=== PATIENT | female | born 1975 | race Caucasian/White ===

== ENCOUNTER 2025-02-02 08:19 | Outpatient (RCR) | payer MEDICAID, SELFPAY ==
--- NOTE | 2025-01-18 12:34 | CTCCONSULT_ITS ---
[facility] [address] [place], [place] [address] Consultation Note Date: 01/18/2025 MR#: [id number] Name: LIZ GARZON : 1975 Dx: C49.22 Malignant neoplasm soft tissue left lower [id number] Referring physician. Owen Erazo MD Reason for consultation. High-grade pleomorphic sarcoma left thigh History of Present Illness: Patient is a 49-year-old lady following left hamstring injury had MRI of the thigh 08/12/2024 revealing complex cystic and solid mass with surrounding edema present in the posterior thigh musculature measuring 9.0 x 11.2 x 12.9 cm with fluid tracking posteriorly inferiorly to this mass. Core biopsy 09-28 revealed high-grade pleomorphic sarcoma. At CT abdomen pelvis 09/14/2024 revealing 2.3 cm sclerotic focus stable since 2018 most likely benign. There was no suspicious intrapelvic or intra-abdominal lymphadenopathy seen. Evaluated US and on 12/02/2024 MRI revealed heterogeneous mass measuring approximately 7.3 x 9.4 x 12.3 cm smaller than noted previously. CT chest abdomen pelvis 12/02/2024 unremarkable for any sign of mets. Patient under care of Dr. Marco Antonio Mistry at [facility] was initiated neoadjuvant chemo AIM beginning October 01, 2024 last dose 6 weeks ago in December, completing 4 cycles according the patient. Patient also received Keytruda, Pt also saw orthopedic surgeon who felt that with tumor is immediately abutting sciatic nerve and that preop radiation therapy would be desirable to shrink tumor away from the nerve. Patient now referred for radiation oncology consultation. Patient had PET scan January 05, 2024 which showed sclerotic L2 vertebral body but no other area of involvement. 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 As well as postop chest wall radiation; gastric bypass surgery 2003 taking Eliquis for DVTs Meds. [place] Gemtesa Eliquis senna morphine 15 mg ER Allergies. Sulfa which causes rash tramadol causing shortness of breath Social History: Patient retired disabled; no smoking drinking lives in [place] with her children and life partner Family history. Father had kidney cancer Review of Systems: Anxiety cold heat intolerance pain in abdomen sleep problem Physical Exam: General: Well-appearing lady no acute distress HEENT: Atraumatic normocephalic extraocular intact no oral lesions no cervical or supraclavicular adenopathy. CV: Breasts are surgically absent with radiation changes noted and no sign of recurrence ABD: Soft no Juliette tenderness EXT: Easily visible and palpable left posterior thigh mass. Assessment: #1. 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 Received 4 cycles AIM neoadjuvant chemo along with Keytruda [facility] last completed in December. #3. Recommended for preop radiation therapy to shrink tumor away from the sciatic nerve #4. 5000 cGy in 25 fractions will be planned for patient using 3D technique. #5. Side effects of explained. Patient told to avoid during treatment course. Thank you much allow me to evaluate and manage this patient. Cc: Owen Erazo MD [facility] Marco Antonio Mistry MD [facility] Electronically signed by: Artie Watson MD, DABR 01/18/2025 12:32 PM
--- NOTE | 2025-01-18 12:35 | CTCTXPLN_ITS ---
[facility] [address] [place], [place] [address] Physician Clinical Treatment Planning Note Date of Service: 01/18/2025 Name: LIZ GARZON : 1975 The patient has agreed to proceed with Radiation therapy. Tests and supporting medical records were interpreted to assist in defining the tumor location and extent of disease. Further imaging will be necessary to contour and delineate the volume to which the XRT will be provided. A. Treatment Intent: Curative B. Modality: 6 MV C. Requested Technique: 3D D. Treatment Site: Left thigh E. Critical structures to be contoured on plan: F. In order to accomplish this plan, I am ordering/Prescribing the followin. Simulations (s) will be performed to accomplish a reproducible treatment position, to determine optimal treatment portals/beam arrangements, to design beam modifying devices and verify treatment portals on patient prior to the commencement of Radiation Therapy. Vac-Donavan 2. Devices; for immobilization and beam shaping: Left thigh 3. CT Guidance for placement of XRT sahu Scan area: 4. Portal images Frequency: 5. Invivo transit dose measurement once per week on all VMAT patients. 6. Special Physics Consult Requested for: 7. Other requests: Special procedure chemoradiation G. Dose Objectives: Curative Electronically signed by: Artie Watson M.D. 01/18/2025 12:33 PM
--- NOTE | 2025-01-18 12:38 | CTCTXPLNST_ITS ---
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 Pt Treatment Intent: curative palliative other: Stage: Procedure CPT # Ordered Spec. Procedure 75835 1 Paulino Complex (set-up) 69750 Midpelvis to L knee 1 Paulino Simple 83697 1 IMRT Plan 62866 MLC Devices VMAT 46724 Paulino 3 D 97679 L thigh 1 TRTMT dev Complex 15760 Vaklok/2F 3 TRTMT dev simple 75389 Basic [place] 86894 2 Special Dosimetry 87999 Spec Physics 13682 Port Films 64423 5 SRS Cranial/1FX 14703 SBR 5 FX or Less /ex: 5 = 5 fx 56731 IMRT Simple 54734 IMRT Complex 64977 IGRT 13002 Rad del com 6- 37147 5000 25 Rad del com 08-24 34289 Cont Med Physics 16422 2 Treatment Planning 99657 1 Rad del com 20 mev 16832 Rad del inter 03-15 17895 Rad del inter 08-24 48572 Rad del simple 6- 06075 Rad del simple 08-24 12832 Special Port Plan 36787 TRTMT dev inter 18557 Isodose Complex 08530 Isodose simple 05602 Resp Motion Mgmt Simulation 74478 Placement of Fiducial Markers 71004 Electronically Signed By: Artie Watson MD, DABR 01/18/2025 12:36 PM
== END 2025-02-02 23:59 | disposition home or self-care (01) ==
LOC: SCTC 08:19
PROVIDERS: PCP Nurse Practitioner; Referring Provider Internal Medicine Hematology & Oncology; Visit Provider Radiology Therapeutic Radiology
DX: Z51.0 Encounter for antineoplastic radiation therapy (principal); C49.22 Malignant neoplasm of connective and soft tissue of left lower limb, including hip
CPT/HCPCS: 77014; 77280; 77290; 77295; 77300; 77334; 77412; 99213; G0463

== ENCOUNTER 2025-03-04 07:49 | Outpatient (RCR) | payer MEDICAID, SELFPAY | END 2025-03-05 23:59 | disposition home or self-care (01) | LOC: SCTC 07:49 | PROVIDERS: PCP Nurse Practitioner; Referring Provider Nurse Practitioner; Visit Provider Radiology Therapeutic Radiology | DX: Z51.0 Encounter for antineoplastic radiation therapy (principal); C49.22 Malignant neoplasm of connective and soft tissue of left lower limb, including hip; L59.8 Other specified disorders of the skin and subcutaneous tissue related to radiation; Y84.2 Radiological procedure and radiotherapy as the cause of abnormal reaction of the patient, or of later complication, without mention of misadventure at the time of the procedure | CPT/HCPCS: 77336; 77412; 77417 ==

== ENCOUNTER 2025-03-30 13:19 | Outpatient (RCR) | payer MEDICAID, SELFPAY ==
--- NOTE | 2025-03-07 10:15 | CTCTRTNOTE_ITS ---
[facility] [address] [place], [place] [address] Weekly Management Date: 03/07/2025 ?? Name: LIZ GARZON : 1975 A. Patient is currently at 4800 cGy. B. Patient is tolerating treatment well. C. Patient is having the following side effects: Minor erythema. No significant desquamation. Completes XRT tomorrow.. D. Resume radiation therapy. Electronically signed by: Artie Watson M.D. 03/07/2025 10:13 AM
== END 2025-04-04 23:59 | disposition home or self-care (01) ==
LOC: SCTC 13:19
PROVIDERS: PCP Nurse Practitioner; Referring Provider Nurse Practitioner; Visit Provider Radiology Therapeutic Radiology
DX: Z51.0 Encounter for antineoplastic radiation therapy (principal); C49.22 Malignant neoplasm of connective and soft tissue of left lower limb, including hip; L59.8 Other specified disorders of the skin and subcutaneous tissue related to radiation; Y84.2 Radiological procedure and radiotherapy as the cause of abnormal reaction of the patient, or of later complication, without mention of misadventure at the time of the procedure
CPT/HCPCS: 77336; 77412; 99212; G0463

== ENCOUNTER 2025-05-09 11:23 | Outpatient (RCR) | payer MEDICAID, SELFPAY ==
--- NOTE | 2025-05-09 12:05 | CTCFLWUP_ITS ---
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 Patient with high-grade pleomorphic sarcoma cancer left thigh. Due to initial nonresectability patient received preop neoadjuvant chemotherapy completing 4 cycles in December 2024. Patient then had preop radiation therapy between 01/31/2025 through 03/08/2025. Patient has been experiencing significant pain needing opioids combination of still present sarcoma cancer following the recent surgery and the side effects of chemo and radiation. I examined patient today, saw the still considerable edema with significant erythema and possible cellulitis for which she is taking antibiotics. Patient had to take extra pain medications due to pain, oxycodone is increased to every 4 hours instead of initially prescribed 6 and fentanyl patch had to be doubled from 12 - 24. I recommended patient take oxycodone 10 mg Q4 to every 6 as needed which means she will need up to 180 tabs a month from now on. I had her sign a drug contract with me as well. Electronically signed by: Artie Watson M.D. 05/09/2025 12:02 PM
== END 2025-06-05 23:59 | disposition home or self-care (01) ==
LOC: SCTC 11:23
PROVIDERS: PCP Nurse Practitioner; Referring Provider Nurse Practitioner; Visit Provider Radiology Therapeutic Radiology
DX: C49.22 Malignant neoplasm of connective and soft tissue of left lower limb, including hip (principal); G89.3 Neoplasm related pain (acute) (chronic); Z92.3 Personal history of irradiation; Z92.21 Personal history of antineoplastic chemotherapy
CPT/HCPCS: 99213; G0463

== ENCOUNTER 2025-07-14 09:29 | Outpatient (RCR) | payer MEDICAID, SELFPAY ==
--- NOTE | 2025-07-14 10:26 | CTCFLWUP_ITS ---
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 Patient then had preop radiotherapy between 01/31/2025 through 03/08/2025 6000 cGy. Patient then underwent resection performed by Dr. Adler 04/18/2025 [facility]. Radical resection left thigh soft tissue mass neuroplasty left sciatic nerve and wound vacuum-assisted closure placement. Final path no residual cancer found. The surgery was complicated by seroma and wound dehiscence. Patient recently had to be hospitalized at [facility] getting IandD placement of wound vacuum and repeat left thigh IandD wound vacuum exchange PRS muscle flap partial closure and drain placement 06/20/2025. Being followed by the surgery team and also by oncology at [facility] recommends 2 additional weeks of radiation after complete healing. Also scheduled for [place] with Dr. Erazo. Examined the heavily bandaged scar which appears to be clean and noninfected. Shall see her back in 6 weeks and anticipate additional information from [facility] about possible additional 2-week radiation according to patient. Electronically signed by: Artie Watson M.D. 07/14/2025 10:24 AM
== END 2025-08-05 23:59 | disposition home or self-care (01) ==
LOC: SCTC 09:29
PROVIDERS: PCP Nurse Practitioner; Referring Provider Nurse Practitioner; Visit Provider Radiology Therapeutic Radiology
DX: C49.22 Malignant neoplasm of connective and soft tissue of left lower limb, including hip (principal); Z92.21 Personal history of antineoplastic chemotherapy
CPT/HCPCS: 99213; G0463

== ENCOUNTER 2025-09-07 09:10 | Outpatient (RCR) | payer MEDICAID, SELFPAY ==
--- NOTE | 2025-09-07 12:50 | CTCFLWUP_ITS ---
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 Patient with high-grade pleomorphic sarcoma cancer left thigh. Due to initial nonresectability patient received preop neoadjuvant chemo completing 4 cycles December 2024 at [facility].. Patient then underwent resection performed by Dr. Adler 04/18/2025 at [facility]. Radical resection left thigh soft tissue mass with final path no residual cancer found. Postop complications with wound dehiscence and seroma. Had to be hospitalized at [facility] for repeat left thigh IandD wound vacuum exchange PRS muscle flap partial closure and drain placement 06/20/2025. Patient recommended 2 additional weeks of radiation after complete healing. Pt doing well, walking well, area well healed. Postop radiation after preop with good results are uncommonly recommended and I will wait to hear from [facility] about what patient stated regarding this case. Electronically signed by: Artie Watson M.D. 09/07/2025 12:47 PM
== END 2025-10-05 23:59 | disposition home or self-care (01) ==
LOC: SCTC 09:10
PROVIDERS: PCP Nurse Practitioner; Referring Provider Nurse Practitioner; Visit Provider Radiology Therapeutic Radiology
DX: C49.22 Malignant neoplasm of connective and soft tissue of left lower limb, including hip (principal)
CPT/HCPCS: 99213; G0463